=== PATIENT | male | born 1945 | race Caucasian/White ===

== ENCOUNTER 2017-04-02 12:27 | Day surgery (SDC) | payer MEDICARE, OTHER ==
--- NOTE | ~2017-04-02 | EGD ---
EGD REPORT [facility] [address] [place] [address] NAME: ANGEL HE : [birth year] STATUS : REG [facility]#: [id number] AGE: 72 ADM/REG DATE : 04/02/17 MR#: [id number] REPORT SERV DATE: 04/02/17 DICTATED BY: CHRIS WHITNEY DATE: 04/02/17 REPORT STATUS : Draft TRANSCRIBED BY: [facility] DATE: 04/02/17 End[facility] Center Patient Name: Angel He Date of : 1945 Attending MD: CHRIS WHITNEY, Procedure Date No Time: 04/02/2017 Procedure: Upper EUS Indications: Dilated pancreatic duct on CT scan, Chronic pancreatitis Referring MD: EMILE PITTMAN III, MD Medicines: Monitored Anesthesia Care Complications: No immediate complications. Estimated blood loss: None. Procedure: Pre-Anesthesia Assessment: - ASA Grade Assessment: III - A patient with severe systemic disease. After obtaining informed consent, the endoscope was passed under direct vision. Throughout the procedure, the patient's blood pressure, pulse, and oxygen saturations were monitored continuously. The Endoscope was introduced through the mouth, and advanced to the second part of duodenum. Findings: Endosonographic Finding : Pancreas divisum was visualized. Endosonographic imaging of the pancreas showed sonographic changes indicative of moderate-severe chronic pancreatitis in the entire pancreas. The parenchyma had calcifications, hyperechoic strands, hyperechoic foci, lobularity and shadowing foci. The pancreatic duct had duct dilation. The pancreatic duct measured up to 7 mm in diameter. Endosonographic imaging of the main pancreatic duct and accessory pancreatic duct showed no stones. No lymphadenopathy seen. There was no sign of significant endosonographic abnormality in the examined duodenum. Endosonographic images of the stomach were unremarkable. There was no sign of significant endosonographic abnormality in the esophagus. Impression: - Pancreas divisum was visualized. - Endosonographic imaging of the pancreas showed sonographic changes consistent with moderate-severe chronic pancreatitis. - There was no sign of significant pathology in the examined duodenum. - Endosonographic images of the stomach were EGD REPORT [address] [address] NAME: ANGEL HE : [birth year] [place]US : [place] [facility] [place] [id number] AGE: 72 ADM/REG DATE : 04/02/17 MR#: [id number] REPORT SERV DATE: 04/02/17 DICTATED BY: CHRIS WHITNEY DATE: 04/02/17 REPORT STATUS : Draft TRANSCRIBED BY: [employer] DATE: 04/02/17 unremarkable. - There was no sign of significant pathology in the esophagus. Recommendation: - Return to previous diet. - Continue present medications. - Return to referring physician. 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 All rights reserved. The codes documented in this report are preliminary and upon clinical research technician review may be revised to meet current compliance requirements. CHRIS WHITNEY, 04/02/2017 4:40 PM Number of Addenda: 0 Note Initiated On: 04/02/2017 4:21 PM Scope Withdrawal Time 0 hours 0 minutes 0 seconds [id number] [id number]
[~2017-04-02 12:27] MED LIST: ADVAIR100 INH; ADVAIR250 INH; ADVIL PO; ALEVE220 MG PEG; ALIGN4 MG PO; ASAB PO; AUG875 PO; AVINZA30 PO; B-12 PO; B12100T PO; BIOTENE SPRAY PO; CHEMO IV; COMP10B PO; CREON; CREON 24,000 UNITS PEG; CREON DR 36,001 EACH PO; CREON DR PO; CREON PO; CREON12000 UNT PO; D.O.S.100 MG PO; DCN100 PO; DIL4TAB PO; DSS PO; FISH-EPA1000 MG PO; FLOMAX4 PO; FLUCON1 PO; GLUCOSAMINE MSM PO; GLUCPH PO; HARD NAILS PO; K500 PO; LORT7 PO; MD ANDERSON PO; MIRALAXPKT PO; NEUR300 PO; NORCO1 TA2 PO; NORV10 PO; NORV5 PO; OTC CREAM TOP; OXYCON10 PO; PCET PO; PERCOCET1 TA2 PO; PERCOCET1 TA4 PO; PREV30 PO; PROBIOTIC PO; PROTONIX PO; ROB1T PO; V2 PO; VITAMIN B-122500 MCG SL; VITAMIN D31000 UNIT PO; VITAMIN E; VITAMIN E PO; VITE1000 PO; Vitamin E; ZOFRAN8 PO; [UNRECOGNIZED DRUG - CODE] PO; [UNRECOGNIZED DRUG - REMARK]
[2017-06-24] MEDS ORDERED: FLOMAX4 PO (10:06)
[2017-06-24] MEDS ORDERED: PROTONIX PO (10:07)
[2017-06-26] MEDS ORDERED: NORCO1 TA2 PO (14:51)
[2017-06-26] MEDS ORDERED: NEUR600 PO (14:52)
[2017-06-26] MEDS ORDERED: HALF81 PO (14:52)
[2017-06-26] MEDS ORDERED: CREON DR 3,0001 EACH PO (14:52)
[2017-06-26] MEDS ORDERED: FLOMAX4 PO (14:52)
[2017-06-26] MEDS ORDERED: HARD NAILS PO (14:52)
[2017-06-26] MEDS ORDERED: PROBIOTIC PO (14:53)
[2017-06-26] MEDS ORDERED: GLUCPH PO (14:53)
[2017-06-26] MEDS ORDERED: PROTONIX PO (14:53)
[2017-06-26] MEDS ORDERED: VITAMIN D1000 UNI1 PO (14:53)
== END 2017-04-02 23:59 | disposition home or self-care (01) ==
LOC: DMU 12:27
PROVIDERS: Internal Medicine Gastroenterology
PROC: 0DJ08ZZ Inspection of Upper Intestinal Tract, Via Natural or Artificial Opening Endoscopic (ICD-10-PCS; principal; 2017-04-02 14:30)
DX: Q45.3 Other congenital malformations of pancreas and pancreatic duct (principal); K86.1 Other chronic pancreatitis; K86.89 Other specified diseases of pancreas; I10 Essential (primary) hypertension; I73.9 Peripheral vascular disease, unspecified; J44.9 Chronic obstructive pulmonary disease, unspecified; E11.9 Type 2 diabetes mellitus without complications; Z79.891 Long term (current) use of opiate analgesic; Z79.82 Long term (current) use of aspirin; Z79.84 Long term (current) use of oral hypoglycemic drugs; Z79.899 Other long term (current) drug therapy
CPT/HCPCS: 82962